=== PATIENT | male | born 1955 | race Caucasian/White ===

== ENCOUNTER 2018-01-02 11:37 | Emergency (ER) | payer MEDICARE, BC ==
--- NOTE | 2018-01-02 11:59 | EDM.PDOC ---
ED HPI GENERAL MEDICAL PROBLEM - General Chief Complaint: Trauma Stated Complaint: [facility] Time Seen by Provider: 01/02/18 11:43 Source of Information: Reports: Patient History Limitations: Reports: No Limitations - History of Present Illness INITIAL COMMENTS - FREE TEXT/NARRATIVE: 62 y M hx of ESRD on PD, presenting after falling off his horse. Was kicked in the left hip on the way down. The patient felt immediate onset of 10/10 left hip pain, non-radiating, he did not attempt to walk, pain was palliated by dilaudid given by EMS. Associated Symptoms: Reports: No Other Symptoms Left Hip Pain Score (Numeric/FACES): 5 - Related Data Allergies Allergy/AdvReac Type Severity Reaction Status Date / Time No Known Allergies Allergy Verified 01/02/18 11:49 Home Meds: Home Meds Acetaminophen [Tylenol] 650 mg PO ASDIRECTED PRN 01/02/18 [History] Acetaminophen/Diphenhydramine [Tylenol Pm Ex-Strength Caplet] 25 - 500 mg PO DAILY PRN 01/02/18 [History] Albuterol Sulfate [Proair Hfa] 2 puff INH Q6H PRN 01/02/18 [History] Allopurinol [Zyloprim] 150 mg PO DAILY 01/02/18 [History] Aspirin [Ecotrin] 81 mg PO DAILY 01/02/18 [History] Bisacodyl [Dulcolax] 5 mg PO DAILY PRN 01/02/18 [History] Calcitriol 0.25 mcg PO DAILY 01/02/18 [History] Calcium Acetate [PhosLo] 2 tab PO TID 01/02/18 [History] Furosemide 20 mg PO DAILY 01/02/18 [History] Gentamicin [Gentamicin 0.1%] 1 applic TOP ASDIRECTED 01/02/18 [History] Heparin Sod,Porcine/0.9 % NaCl [Heparin 1,000 Unit/1,000 ml-Ns] 1,000 unit INJECT ASDIRECTED 01/02/18 [History] Lactulose 20 gram PO ASDIRECTED PRN 01/02/18 [History] Losartan [Cozaar] 50 mg PO DAILY 01/02/18 [History] Metoprolol Succinate [Toprol XL] 25 mg PO DAILY 01/02/18 [History] Multivit-Min/Folic/Vit K/Lycop [One Daily Men's 50 Plus D3 Tab] 1 tab PO DAILY 01/02/18 [History] Polyethylene Glycol 3350 [MiraLAX] 17 gram PO DAILY PRN 01/02/18 [History] Sevelamer Carbonate [Renvela] 1,600 mg PO TID 01/02/18 [History] atorvaSTATin [Lipitor] 20 mg PO DAILY 01/02/18 [History] traMADol [Ultram] 50 mg PO Q12HR PRN 01/02/18 [History] Review of Systems - Review of Systems Review Of Systems: See Below Constitutional: Reports: No Symptoms Eyes: Reports: No Symptoms Ears: Reports: No Symptoms Nose: Reports: No Symptoms Mouth/Throat: Reports: No Symptoms Respiratory: Reports: No Symptoms Cardiovascular: Reports: No Symptoms Genitourinary: Reports: No Symptoms Musculoskeletal: Reports: Other (left hip pain) Neurological: Reports: No Symptoms ED EXAM, GENERAL - Physical Exam Exam: See Below Exam Limited By: No Limitations General Appearance: Alert, No Apparent Distress Nose: Normal Inspection Throat/Mouth: Normal Inspection Head: Atraumatic, Normocephalic Neck: Normal Inspection, Supple, Non-Tender, Full Range of Motion Respiratory/Chest: No Respiratory Distress, Lungs Clear, Normal Breath Sounds, Chest Non-Tender Cardiovascular: Normal Peripheral Pulses, Regular Rate, Rhythm GI/Abdominal: Soft, Non-Tender, Other (Mild distention of abdomen with peritoneal dialysis catheter port also noted his umbilical hernia which is soft and nontender to palpation) Extremities: Other (mild tenderness to palpation of the left hip, pelvis is stable, ) Neurological: Alert, Oriented, CN II-XII Intact Psychiatric: Normal Affect, Normal Mood Skin Exam: Warm, Dry, Intact Course - Vital Signs Last Recorded V/S: Last Vital Signs Temp 36.7 C 01/02/18 12:40 Pulse 56 L 01/02/18 12:40 Resp 16 01/02/18 12:40 BP 107/63 01/02/18 12:40 Pulse Ox 100 01/02/18 12:40 - Orders/Labs/Meds Orders: Active Orders 24 hr Category Date Time Status EKG Documentation Completion [RC] STAT Care 01/02/18 12:23 Active Chest 1V Frontal [CR] Stat Exams 01/02/18 12:23 Taken Hip Min 2V or 3V w Pelvis Lt [CR] Stat Exams 01/02/18 11:44 Taken Labs: Laboratory Tests 01/02/18 01/02/18 01/02/18 Range/Units 11:52 11:52 11:52 WBC 11.91 H (4.23-9.07) K/mm3 RBC 4.55 L (4.63-6.08) M/mm3 Hgb 14.6 (13.7-17.5) gm/L Hct 44.7 (40.1-51.0) % MCV 98.2 H (79.0-92.2) fl MCH 32.1 (25.7-32.2) pg MCHC 32.7 (32.2-35.5) g/dl RDW Std Deviation 50.3 H (35.1-43.9) fL Plt Count 244 (163-337) K/mm3 MPV 10.6 (9.4-12.3) fl Neut % (Auto) 87.7 H (34.0-67.9) % Lymph % (Auto) 6.1 L (21.8-53.1) % [place] % (Auto) 5.3 (5.3-12.2) % Eos % (Auto) 0.4 L (0.8-7.0) Baso % (Auto) 0.3 (0.1-1.2) % Neut # (Auto) 10.45 H (1.78-5.38) K/mm3 Lymph # (Auto) 0.73 L (1.32-3.57) K/mm3 [place] # (Auto) 0.63 (0.30-0.82) K/mm3 Eos # (Auto) 0.05 (0.04-0.54) K/mm3 Baso # (Auto) 0.03 (0.01-0.08) K/mm3 Manual Slide Review Abnormal smear PT 9.9 (9.5-12.1) SECONDS INR < 0.93 APTT 24 (24-31) SECONDS Sodium 143 (136-145) mEq/L Potassium 4.3 (3.5-5.1) mEq/L Chloride 104 (98-107) mEq/L Carbon Dioxide 30 (21-32) mEq/L Anion Gap 13.3 (5-15) BUN 58 H (7-18) mg/dL Creatinine 9.5 H (0.7-1.3) mg/dL Est Cr Clr Drug Dosing 8.16 mL/min Estimated GFR (MDRD) 6 (>60) mL/min BUN/Creatinine Ratio 6.1 L (14-18) Glucose 134 H (80-115) mg/dL Calcium 9.4 (8.5-10.1) mg/dL Total Bilirubin 0.3 (0.2-1.0) mg/dL AST 33 (15-37) U/L ALT 29 (16-63) U/L Alkaline Phosphatase 70 (46-116) U/L Total Protein 6.1 L (6.4-8.2) g/dl Albumin 2.8 L (3.4-5.0) g/dl Globulin 3.3 gm/dL Albumin/Globulin Ratio 0.9 L (1-2) Meds: Medications Discontinued Medications Generic Name Dose Route Start Last Admin Trade Name Freq PRN Reason Stop Dose Admin Hydromorphone HCl 1 mg 01/02/18 12:01 01/02/18 12:03 Dilaudid IVPUSH 01/02/18 12:02 1 mg ONETIME ONE Administration Hydromorphone HCl Confirm 01/02/18 12:02 01/02/18 12:05 Dilaudid Administered 01/02/18 12:03 Not Given Dose 1 mg .ROUTE .STK-MED ONE Hydromorphone HCl Confirm 01/02/18 14:53 01/02/18 15:12 Dilaudid Administered 01/02/18 14:54 Not Given Dose 1 mg .ROUTE .STK-MED ONE Hydromorphone HCl 1 mg 01/02/18 15:05 01/02/18 15:00 Dilaudid IVPUSH 01/02/18 15:06 1 mg ONETIME ONE Administration - Re-Assessments/Exams Free Text/Narrative Re-Assessment/Exam: 01/02/18 12:00 62-year-old male presenting after falling off his horse and having some left hip pain. Initial evaluation patient has normal vital signs. Primary survey was intact. Secondary survey is notable for tenderness to palpation of the left hip with a stable pelvis. 3 to be no soft tissue injuries no lacerations or abrasions. The patient is neurovascularly intact in the left lower extremity. At this time plan to proceed with plain films of the left hip and pelvis. The patient's pain is currently controlled with the Dilaudid he received in the field. 01/02/18 12:56 Plain films reveal an intertrochanteric fracture on the left side. Symphysis is mildly widened his pelvis remains stable on reexam. Plan is now to obtain preoperative labs EKG and chest x-ray. Once these are obtained we will call over to [facility] for orthopedic surgery. 01/02/18 17:[address] Valero, hospitalist will consult orthopedic surgery. Preoperative labs, EKG and CXR unremarkable. Relayed this information to hospitalist. Patient remained HDS while in the ED. Departure - Departure Time of Disposition: 15:10 Disposition: DC/Tfer to [facility] 02 Clinical Impression: Intertrochanteric fracture of left hip Qualifiers: Encounter type: initial encounter Fracture type: closed Fracture alignment: displaced Qualified Code(s): S72.142A - Displaced intertrochanteric fracture of left femur, initial encounter for closed fracture - Discharge Information *PRESCRIPTION DRUG MONITORING PROGRAM REVIEWED*: No *COPY OF PRESCRIPTION DRUG MONITORING REPORT IN PATIENT JOY: No Referrals: Eve Tee [employer] [Primary Care Provider] - Forms: ED Department Discharge - My Orders Last 24 Hours: My Active Orders 01/02/18 11:44 Hip Min 2V or 3V w Pelvis Lt [CR] Stat 01/02/18 12:23 EKG Documentation Completion [RC] STAT Chest 1V Frontal [CR] Stat - Assessment/Plan Last 24 Hours: My Active Orders 01/02/18 11:44 Hip Min 2V or 3V w Pelvis Lt [CR] Stat 01/02/18 12:23 EKG Documentation Completion [RC] STAT Chest 1V Frontal [CR] Stat
[2018-01-02] MEDS ORDERED: HYDROmorphone 1 MG/ML Syringe IVPUSH ONE ×2 (12:01→15:05)
[2018-01-02] MEDS ORDERED: HYDROmorphone 1 MG/ML Syringe ONE ×2 (12:02→14:53)
--- NOTE | 2018-01-05 07:48 | CR ---
Pelvis and left hip: AP view of the pelvis was obtained as well as AP and lateral views of the left hip. Mildly angulated intertrochanteric fracture is seen within the left hip. Fairly severe joint space narrowing is noted within the left hip. Right hip appears within normal limits. Widening of the pubic symphysis is seen. Dialysis catheter is seen within the pelvis. Impression: 1. Mildly angulated intertrochanteric fracture within the left hip. 2. Widening of the pubic symphysis which is most likely chronic although no old films are available to confirm. 3. Degenerative change is noted within the left hip. Other incidental findings. Diagnostic code #3
--- NOTE | 2018-01-06 10:16 | CR ---
Chest: Portable supine view of the chest was obtained. Comparison: No prior study. Heart size and mediastinum are normal. Lungs are clear without acute parenchymal change. Bony structures are grossly intact. Impression: 1. Nothing acute is seen. Diagnostic code #1
== END 2018-01-02 15:10 ==
LOC: JD.ED 11:37
DX: S72.142A Displaced intertrochanteric fracture of left femur, initial encounter for closed fracture (principal); Z79.899 Other long term (current) drug therapy; V80.010A Animal-rider injured by fall from or being thrown from horse in noncollision accident, initial encounter
CPT/HCPCS: 36415; 71045; 73502; 80053; 85025; 85610; 85730; 93005; 96374; 96376; 99285; J1170